=== PATIENT | male | born 1950 | race Caucasian/White ===

== ENCOUNTER 2016-08-13 07:45 | Outpatient (CLI) ==
--- NOTE | 2016-08-13 08:46 | CT ---
EXAM: CT head without contrast. HISTORY: Headache and center of the head and behind the eye for 1 month. COMPARISON: None available. TECHNIQUE: Multiple axial images of the brain were obtained from the skull base through the vertex prior to and following intravenous administration of 75 mL of Omnipaque 350. Postcontrast images we re reformatted in the sagittal and coronal planes pre FINDINGS: There is no intracranial hemorrhage or extraaxial collection. The keene-white differentia tion is maintained without evidence for acute large vascular territory infarction. There are areas of periventricular and subcortical white matter low attenuation. No areas of abnormal enhancement i dentified. The cortical sulci and cerebral ventricles are symmetrically enlarged. The basal cister ns are well visualized. There is no hydrocephalus, mass effect, or midline shift. There is mild op acification of a few right mastoid air cells. Otherwise, the paranasal sinuses and mastoid air cell s are clear. The calvarium is intact. IMPRESSION: 1. No acute intracranial abnormality. 2. Chronic small vessel ischemic changes and atrophy.
== END 2016-08-13 07:46 | disposition home or self-care (01) ==
LOC: RAD 07:45
PROVIDERS: ATTEND Family Medicine
DX: R51 Headache (principal)

== ENCOUNTER 2017-03-19 09:39 | Outpatient (CLI) ==
--- NOTE | 2017-03-19 10:32 | DI ---
EXAM: Two views of the chest. History: Cough. Findings: Heart size is upper limits of normal. No focal consolidation. No appreciable pleural flu id and no pneumothorax. No acute osseous abnormalities. Impression: No acute cardiopulmonary process
== END 2017-03-19 09:40 | disposition home or self-care (01) ==
LOC: RAD 09:39
PROVIDERS: ATTEND Family Medicine
DX: R05 Cough (principal)

== ENCOUNTER 2017-05-26 12:34 | Outpatient (CLI) | payer OTHER ==
--- NOTE | 2017-05-26 13:19 | DI ---
Exam: Two x-rays of the right knee. Comparison: 09/19/2013. Reason for exam: Right knee pain. FINDINGS: No acute fracture or malalignment. The joint spaces are well maintained. No unexplained calcific soft tissue density or radiopaque retained foreign body. Vascular calcifications are seen i n the soft tissues. Impression: No acute fracture or dislocation in the right knee with mild degenerative disease.
== END 2017-05-26 12:35 | disposition home or self-care (01) ==
LOC: RAD 12:34
PROVIDERS: ATTEND Family Medicine
DX: M25.561 Pain in right knee (principal)

== ENCOUNTER 2018-02-23 10:48 | Day surgery (SDC) ==
[2018-02-23] MEDS ORDERED: LIDOCAINE 1% 20 ML MDV ID STA (11:19)
[2018-02-23 11:24] VITALS: TEMP 98.4
[2018-02-23] MEDS ORDERED: DIPRIVAN 20 ML VIAL IVP ONE ×2 (11:56)
--- NOTE | 2018-02-24 14:13 | OP ---
INDICATIONS FOR PROCEDURE: 67 year old gentleman presents for colonoscopy exam. He has a past history of adenomatous polyps with his last colonoscopy three years ago. He has a brother that has had colon polyps as well. MEDICATIONS: SEE ANESTHESIA NOTES. PROCEDURE: COLONOSCOPY. SNARE POLYPECTOMY. ENDOCLIP THERAPY. REPORT: The risks, benefits, alternatives and limitations were discussed in detail with the patient. Informed consent was obtained. After adequate sedation was achieved, a digital rectal exam revealed good tone, no masses. The colonoscope was introduced into the rectum and advanced under direct visual guidance to the cecum. The cecum was identified by the appendiceal orifice and IC valve. I then slowly withdrew the scope in circumferential manner and examined the mucosa quite carefully. I looked on the proximal and distal sides of folds and flexures as best as possible. I was able to retroflex the scope in the right colon and left colon to increase visualization. In the distal ascending colon there was a sessile 12mm polyp. I removed this by snare technique. The polyp was collected. I then closed the polypectomy site with two Endoclips. I then withdrew the scope further examination the remaining colon noting no other abnormalities. The scope was retroflexed and looked at the anal canal which was also unremarkable. The prep was good and the withdraw time was 14 minutes and 11 seconds. The patient tolerated the procedure well with stable vital signs and pulse oximetry throughout. IMPRESSION: 1. 12mm sessile polyp removed from the ascending RECOMMENDATIONS: 1. High fiber diet 2. Office visit as needed 3. Await pathology and if everything is benign consider surveillance colonoscopy examination again in 3 years or sooner if there are signs or symptoms that indicate otherwise. CC: Dr. Hair GARCIA
[2018-02-24 15:28] VITALS: BP 128/57
== END 2018-02-23 13:30 | disposition home or self-care (01) ==
LOC: SURG 10:48
PROVIDERS: ATTEND Internal Medicine Gastroenterology
DX: Z86.010 Personal history of colon polyps (principal); Z83.71 Family history of colonic polyps; D12.2 Benign neoplasm of ascending colon